=== PATIENT | male | born 1975 ===

== ENCOUNTER 2021-03-24 07:28 | Emergency (ER) | payer MEDICARE ==
[2021-03-24 08:24] LABS: Basophils % (Auto) 0.7 % (0.0-1.8); Eosinophils # (Auto) 0.2 K/mm3 (0.0-0.4); Hematocrit 40.5 % (35.5-45.6); Hemoglobin 14.3 gm/dl (11.8-15.2); Lymphocytes # (Auto) 0.9 K/mm3 (1.2-5.4); Lymphocytes % (Auto) 14.2 % (13.4-35.0); Mean Corpuscular HGB Conc 35 % (32-34); Mean Corpuscular Volume 96 fl (84-94); Monocytes # (Auto) 0.6 K/mm3 (0.0-0.8); Monocytes % (Auto) 8.8 % (0.0-7.3); Platelet Count 180 K/mm3 (140-440); Red Blood Count 4.22 M/mm3 (3.65-5.03); Red Cell Distribution Width 12.4 % (13.2-15.2)
[2021-03-24 08:35] LABS: Bilirubin,Urine NEG (Negative); Blood,Urine NEG (Negative); Calcium Oxalate Crystals,Urine 1+; Color,Urine Yellow (Yellow); Mucus,Urine FEW /HPF; Protein,Urine <15 mg/dL mg/dL (Negative); Urobilinogen,Urine < 2.0 mg/dL (<2.0)
[2021-03-24 08:42] LABS: Amphetamine Screen,Urine Negative; Benzodiazepines Screen,Urine Negative; Cannabinoid Screen,Urine Negative; Cocaine Screen,Urine Negative; Methadone Screen,Urine Negative; Opiate Screen,Urine Negative
[2021-03-24 08:45] LABS: Blood Urea Nitrogen 9 mg/dL (9-20); Calcium 8.3 mg/dL (8.4-10.2); Hemolysis Index 12
[2021-03-24 08:49] LABS: BUN/Creatinine Ratio 13
--- NOTE | 2021-03-24 13:41 | Emergency Department Report ---
<MYCHAL ESPINOZA M - Last Filed: 03/24/21 13:44> ED Psych HPI - General Chief Complaint: Medical Clearance Stated Complaint: MENTAL HEALTH Time Seen by Provider: 03/24/21 12:33 Source: patient Mode of arrival: Ambulatory - History of Present Illness Initial Comments: This a 45-year-old male who apparently was just discharged on the from [facility]. He produced a prescription revealing medications for Neurontin, Depakote, Risperdal and Seroquel. Today he returned to [place]. He states that he lives in [place] but apparently cannot go back there. He is originally from [place]. States has been here for some time but speaks very little Slovenian. I obtained the history in Romanian. Patient tells me that he has had mental health problems since he was a teenager. He states that he is depressed and wants to harm himself. He has not made any specific plan. He states he is never taken an overdose. However, he states he did cut himself once. He has a small scar on his left ventral forearm. He currently admits to homelessness. MD Complaint: suicidal ideation, feels depressed -: Gradual, year(s) Associated Psychiatric Symptoms: depression, other (Chronic pain) History of same: Yes Quality: intermittent Improves With: none Worsens With: none Context: other (Homelessness) Associated Symptoms: denies other symptoms Treatments Prior to Arrival: none If Self Harm: admits thoughts of - Related Data Allergies Allergy/AdvReac Type Severity Reaction Status Date / Time haloperidol [From Haldol] Allergy Unknown Verified 03/24/21 07:44 ED Review of Systems Constitutional: denies: chills, fever Eyes: denies: eye pain, vision change ENT: denies: ear pain, throat pain Respiratory: denies: cough, shortness of breath Cardiovascular: denies: chest pain, palpitations Endocrine: no symptoms reported Gastrointestinal: denies: abdominal pain, nausea, diarrhea Genitourinary: denies: urgency, dysuria Musculoskeletal: denies: back pain Skin: denies: rash, lesions Neurological: denies: headache, weakness, paresthesias Psychiatric: depression, suicidal thoughts. denies: anxiety Hematological/Lymphatic: denies: easy bleeding, easy bruising ED Past Medical Hx - Past Medical History Previous Medical History?: No Hx Psychiatric Treatment: Yes (Bipolr, schizophrenia) - Surgical History Past Surgical History?: No - Social History Smoking Status: Current Every Day Smoker ED Physical Exam - General General appearance: alert, in no apparent distress - Head Head exam: Present: atraumatic, normocephalic - Eye Eye exam: Present: normal appearance. Absent: scleral icterus - ENT ENT exam: Present: mucous membranes moist - Neck Neck exam: Present: normal inspection - Respiratory Respiratory exam: Present: normal lung sounds bilaterally. Absent: respiratory distress - Cardiovascular Cardiovascular Exam: Present: regular rate, normal rhythm. Absent: systolic murmur, diastolic murmur, rubs, gallop - GI/Abdominal GI/Abdominal exam: Present: soft, normal bowel sounds. Absent: distended, tenderness, guarding, rebound - Rectal Rectal exam: Present: deferred - Extremities Exam Extremities exam: Present: normal inspection - Back Exam Back exam: Present: normal inspection - Neurological Exam Neurological exam: Present: alert, oriented X3, CN II-XII intact. Absent: motor sensory deficit - Psychiatric Psychiatric exam: Present: normal mood, flat affect - Skin Skin exam: Present: warm, dry, intact, normal color. Absent: rash ED Course - Reevaluation(s) Reevaluation #1: It would appear that the patient is motivated by secondary gain, ie, homelessne ss. He was just discharged from [place]. Considering that, we will continue his mental health medications pending evaluation by counselor here. I would not enter a 1013 at this juncture. I am going to order Accu-Cheks at this point. The patient tells me he has never been on any diabetic medication. His sugar was over 200 and it may be appropriate. However, we will see if it is indicated based on Accu-Cheks to be done. 03/24/21 13:44 ED Medical Decision Making - Lab Data Result diagrams: 03/24/21 08:15 03/24/21 08:15 Laboratory Results - last 24 hr 03/24/21 03/24/21 03/24/21 08:15 08:15 08:15 WBC RBC Hgb Hct MCV MCH MCHC RDW Plt Count Lymph % (Auto) Kenton % (Auto) Eos % (Auto) Baso % (Auto) Lymph # (Auto) Kenton # (Auto) Eos # (Auto) Baso # (Auto) Seg Neutrophils % Seg Neutrophils # Sodium 134 L Potassium 4.1 Chloride 96.1 L Carbon Dioxide 29 Anion Gap 13 BUN 9 Creatinine 0.7 L Estimated GFR > 60 BUN/Creatinine Ratio 13 Glucose 215 H Calcium 8.3 L Urine Color Urine Turbidity Urine pH Ur Specific Providence Urine Protein Urine Glucose (UA) Urine Ketones Urine Blood Urine Nitrite Urine Bilirubin Urine Urobilinogen Ur Leukocyte Esterase Urine WBC (Auto) Urine RBC (Auto) Calcium Oxalate Crystal Urine Mucus Salicylates < 0.3 L Urine Opiates Screen Urine Methadone Screen Acetaminophen 5.0 L Ur Barbiturates Screen Ur Phencyclidine Scrn Ur Amphetamines Screen U Benzodiazepines Scrn Urine Cocaine Screen U Marijuana (THC) Screen Drugs of Abuse Note Plasma/Serum Alcohol 03/24/21 03/24/21 03/24/21 08:15 08:15 08:16 WBC 6.6 RBC 4.22 Hgb 14.3 Hct 40.5 MCV 96 H MCH 34 H MCHC 35 H RDW 12.4 L Plt Count 180 Lymph % (Auto) 14.2 Kenton % (Auto) 8.8 H Eos % (Auto) 3.0 Baso % (Auto) 0.7 Lymph # (Auto) 0.9 L Kenton # (Auto) 0.6 Eos # (Auto) 0.2 Baso # (Auto) 0.0 Seg Neutrophils % 73.3 H Seg Neutrophils # 4.8 Sodium Potassium Chloride Carbon Dioxide Anion Gap BUN Creatinine Estimated GFR BUN/Creatinine Ratio Glucose Calcium Urine Color Yellow Urine Turbidity Clear Urine pH 6.0 Ur Specific Providence 1.024 Urine Protein <15 mg/dl Urine Glucose (UA) >=500 Urine Ketones 20 Urine Blood Neg Urine Nitrite Neg Urine Bilirubin Neg Urine Urobilinogen < 2.0 Ur Leukocyte Esterase Neg Urine WBC (Auto) 1.0 Urine RBC (Auto) 1.0 Calcium Oxalate Crystal 1+ Urine Mucus Few Salicylates Urine Opiates Screen Urine Methadone Screen Acetaminophen Ur Barbiturates Screen Ur Phencyclidine Scrn Ur Amphetamines Screen U Benzodiazepines Scrn Urine Cocaine Screen U Marijuana (THC) Screen Drugs of Abuse Note Plasma/Serum Alcohol < 0.01 03/24/21 08:16 WBC RBC Hgb Hct MCV MCH MCHC RDW Plt Count Lymph % (Auto) Kenton % (Auto) Eos % (Auto) Baso % (Auto) Lymph # (Auto) Kenton # (Auto) Eos # (Auto) Baso # (Auto) Seg Neutrophils % Seg Neutrophils # Sodium Potassium Chloride Carbon Dioxide Anion Gap BUN Creatinine Estimated GFR BUN/Creatinine Ratio Glucose Calcium Urine Color Urine Turbidity Urine pH Ur Specific Providence Urine Protein Urine Glucose (UA) Urine Ketones Urine Blood Urine Nitrite Urine Bilirubin Urine Urobilinogen Ur Leukocyte Esterase Urine WBC (Auto) Urine RBC (Auto) Calcium Oxalate Crystal Urine Mucus Salicylates Urine Opiates Screen Negative Urine Methadone Screen Negative Acetaminophen Ur Barbiturates Screen Negative Ur Phencyclidine Scrn Negative Ur Amphetamines Screen Negative U Benzodiazepines Scrn Negative Urine Cocaine Screen Negative U Marijuana (THC) Screen Negative Drugs of Abuse Note Disclamer Plasma/Serum Alcohol ED Disposition Clinical Impression: Suicidal ideation, Hyperglycemia Schizoaffective disorder Qualifiers: Schizoaffective disorder type: depressive Qualified Code(s): F25.1 - Schizoaffective disorder, depressive type Disposition: DC-01 TO HOME OR SELFCARE Is pt being admited?: No Does the pt Need Aspirin: No Condition: Stable Instructions: Persistent Depressive Disorder, Adult, Suicidal Feelings: How to Help Yourself Referrals: PRIMARY CARE, [Primary Care Provider] - 3-5 Days Time of Disposition: 13:46 Print Language: UKRAINIAN <WILY CRAWFORD - Last Filed: 03/25/21 16:32> ED Review of Systems ROS: Stated complaint: MENTAL HEALTH Other details as noted in HPI ED Course Vital Signs 03/24/21 03/24/21 03/24/21 07:49 13:00 19:45 Temperature 98.8 F 98.6 F 98.6 F Pulse Rate 89 79 72 Respiratory 16 20 18 Rate Blood Pressure 133/103 Blood Pressure 131/90 134/97 [Right] O2 Sat by Pulse 98 96 98 Oximetry 03/25/21 03/25/21 00:45 07:49 Temperature 98.6 F 98.2 F Pulse Rate 70 70 Respiratory 18 20 Rate Blood Pressure Blood Pressure 130/88 114/96 [Right] O2 Sat by Pulse 98 96 Oximetry ED Medical Decision Making - Lab Data Result diagrams: 03/24/21 08:15 03/24/21 08:15 - Medical Decision Making Mental health rn intern informed me the patient made concerning statements upon discharge. Mental health rn intern initially cleared patient to be discharged home. Upon discharge patient stated that he plans to kill himself by cutting his wrist. I have ordered seclusion. Patient has made several attempts to elope. ED hold order in place. 1013 form completed. I have reviewed labs obtained. Patient is medically clear for psychiatric care. I personally evaluated patient. When I asked him if he desired to harm himself he repeated stated "maybe" Patient ultimately discharged home. Critical care attestation.: If time is entered above; I have spent that time in minutes in the direct care of this critically ill patient, excluding procedure time. ED Disposition Is pt being admited?: No Does the pt Need Aspirin: No
[2021-03-24] MEDS ORDERED: ACETAMINOPHEN 325 MG TAB PO PRN (13:47)
[2021-03-24] MEDS ORDERED: ALUM-MAG HYDROXIDE-SIMETHICONE 200-200-20MG/5ML ORAL LIQD 30 ML PO PRN (13:47)
[2021-03-24] MEDS: DIVALPROEX DR 500 MG TAB PO SCH ×2 (15:11→21:49)
[2021-03-24] MEDS ORDERED: ZIPRASIDONE MESYLATE 20 MG VIAL IM PRN (17:50)
[2021-03-24] MEDS: risperiDONE 1 MG TAB PO SCH (21:49)
[2021-03-24] MEDS: GABAPENTIN 300 MG CAP PO SCH (21:49)
[2021-03-24] MEDS ORDERED: QUEtiapine 200 MG TAB PO SCH (22:00)
[2021-03-25 07:50] VITALS: BP 114/96
[2021-03-25] MEDS: DIVALPROEX DR 500 MG TAB PO SCH (08:36)
[2021-03-25] MEDS ORDERED: QUEtiapine 100 MG TAB PO SCH (10:00)
[2021-03-25] MEDS: GABAPENTIN 300 MG CAP PO SCH (10:27)
[2021-03-25] MEDS: risperiDONE 1 MG TAB PO SCH (10:29)
--- NOTE | 2021-03-25 11:17 | Consultation ---
History of Present Illness - Reason for Consult Consult date: 03/25/21 Reason for consult: MHE Requesting physician: MYCHAL ESPINOZA - History of Present Psychiatric Illness Per ED provider: This a 45-year-old male who apparently was just discharged on the from [facility]. He produced a prescription revealing medic ations for Neurontin, Depakote, Risperdal and Seroquel. Today he returned to [place]. He states that he lives in [place] but apparently cannot go back there. He is originally from [place]. States has been here for some time but speaks very little Sudanese. I obtained the history in Irish. Patient tells me that he has had mental health problems since he was a teenager. He states that he is depressed and wants to harm himself. He has not made any specific plan. He states he is never taken an overdose. However, he states he did cut himself once. He has a small scar on his left ventral forearm. He currently admits to homelessness. PSYCH HPI Patient is 45-year-old male who is currently unemployed and receives disability income and has past psychiatric history of bipolar and schizophrenia with no significant past medical history who presented to the ED with chief complaint of having thoughts of self-harm. Patient is seen today with topographic computator present, patient states that he is not suicidal nor does he want to hurt himself, that he had to settle so that he could be allowed to stay because the other time that he came to the emergency room he was given long term resources and he had to sleep in the street and he did not like that. Patient reported he was just seen and treated at [facility] and really liked the place, was hoping that he could be sent back to the place but if not possible he has a place in [place] that he currently rent because he gets a monthly check of $700 and would like if transportation services could be provided. He denies SI, HI or AVH at this moment requesting for transportation services back to where he stays PAST PSYCHIATRIC HISTORY Diagnoses: Bipolar schizophrenia Suicide attempts or Self-harm behavior: None reported Prior psychiatric hospitalizations: Yes recently discharged from [facility] Substance Abuse history: None reported Previous psychiatric medications tried: Yes Outpatient treatment: Yes PAST MEDICAL HISTORY: None reported Family Psychiatric History: None reported or documented SOCIAL HISTORY Marital Status: Single Living Arrangements: Rent Employment Status: [employer] Access to guns/weapons: None reported Education: Sixth grade History of Abuse: None report Legal History: None reported REVIEW OF SYSTEMS Constitutional: Negative for weight loss ENT: Negative for stridor Respiratory: Negative for cough or hemoptysis All other systems reviewed and are negative MENTAL STATUS EXAMINATION General Appearance and Behavior: Age appropriate, good hygiene, wearing appropriate clothes, good eye contact, cooperative polite with questioning. Cooperation: Participating/engaged Psychomotor Behavior: unremarkable and within normal limits Mood: Good Affect and affective range: congruent with mood Thought Process: Fluent/Logical, Thought Content: Within reality, Speech: Normal volume, Regular rate and rhythm, Intellectual Functioning: Average Suicidal Ideation: Denies SI Homicidal Ideation: Denies HI Impulse Control: Unimpaired Insight and Judgment: Normal insight and judgment, Memory: Normal, Attention: Normal, Orientation: Alert, oriented, Assessment and Plan - Psychiatric problem (1) Schizoaffective disorder Current Visit: Yes Status: Acute Qualifiers: Treatment Plan MEDICATIONS: Risks, benefits and alternatives of medications discussed with the patient, questions answered and consent obtained from patient. PSYCHOTHERAPY: Supportive psychotherapy provided MEDICAL: Per primary team DELIRIUM PRECAUTIONS: Please re-orient patient frequently, keep lights on during the day, and minimize benzodiazepines and opiates as these medications could worsen patient's confusion. HOST/HOSTESS GROUND: DISPOSITION: Do Not Recommend acute inpatient psychiatric hospitalization at this time. Case discussed with Dr. Moe who agrees with current disposition LEGAL STATUS: 1013 rescinded FOLLOW-UP: Will sign off Thank you for the consult. Please contact with any questions and/or concerns. Medications and Allergies Allergies Allergy/AdvReac Type Severity Reaction Status Date / Time haloperidol [From Haldol] Allergy Unknown Verified 03/24/21 07:44 Active Meds: Active Medications Acetaminophen (Acetaminophen 325 Mg Tab) 650 mg PO Q4HR PRN PRN Reason: Pain MILD(1-3)/Fever >100.5/PATRICIO Al Hydrox/Mg Hydrox/Simethicone (Alum-Mag Hydroxide-Simethicone [id number]/5ml Oral Liqd 30 Ml) 30 ml PO Q4HR PRN PRN Reason: Indigestion Divalproex Sodium (Divalproex Dr 500 Mg Tab) 500 mg PO TID MITCH Last Admin: 03/25/21 08:36 Dose: 500 mg Documented by: Gabapentin (Gabapentin 300 Mg Cap) 300 mg PO BID [facility] Last Admin: 03/24/21 21:49 Dose: 300 mg Documented by: Quetiapine Fumarate (Quetiapine 100 Mg Tab) 100 mg PO QAM [facility] Quetiapine Fumarate (Quetiapine 200 Mg Tab) 200 mg PO QHS [facility] Last Admin: 03/24/21 21:49 Dose: 200 mg Documented by: Risperidone (Risperidone 1 Mg Tab) 3 mg PO BID [facility] Last Admin: 03/24/21 21:49 Dose: 3 mg Documented by: Ziprasidone (Ziprasidone Mesylate 20 Mg Vial) 20 mg IM ONCE PRN PRN Reason: Agitation Mental Status Exam - Vital signs Last Vital Signs Temp 98.2 F 03/25/21 07:49 Pulse 70 03/25/21 07:49 Resp 20 03/25/21 07:49 BP 114/96 03/25/21 07:49 Pulse Ox 96 03/25/21 07:49 Results Result Diagrams: 03/24/21 08:15 03/24/21 08:15 All other labs normal. Assessment and Plan - Psychiatric problem (1) Schizoaffective disorder Current Visit: Yes Status: Acute Qualifiers: Schizoaffective disorder type: depressive Qualified Code(s): F25.1 - Schizoaffective disorder, depressive type
== END 2021-03-25 13:29 | disposition home or self-care (01) ==
LOC: EDSEX → ED 07:28
DX: R45.851 Suicidal ideations (principal); Z20.822 Contact with and (suspected) exposure to COVID-19; F32.9 Major depressive disorder, single episode, unspecified; F20.9 Schizophrenia, unspecified; F17.200 Nicotine dependence, unspecified, uncomplicated; Z88.8 Allergy status to other drugs, medicaments and biological substances
CPT/HCPCS: 36415; 80048; 80307; 81001; 82962; 85025; 99285; U0003; 80320; G0480